=== PATIENT | female | born 1965 | race African-American/Black ===

== ENCOUNTER 2024-06-02 12:49 | Emergency (ER) | payer BC, SELFPAY ==
[2024-06-02] VITALS (7 sets, daily range): BP systolic 109–153; BP diastolic 65–71
[2024-06-02 13:36] LABS: Hematocrit 39.2 % (37.0-47.0); Hemoglobin 12.7 g/dL (12.0-16.0); Mean Corp Hgb Conc. 32.4 g/dL (33.0-37.0); Mean Corpuscular Hgb 27.3 pg (27.0-31.0); Mean Corpuscular Volume 84.1 fL (81.0-99.0); Mean Platelet Volume 9.9 fL (7.4-10.4); Platelet Count 309 10^3/uL (130-400); Red Blood Cell Count 4.66 10^6/uL (4.20-5.40); Red Cell Dist. Width 16.2 % (11.5-14.5); White Blood Cell Count 7.8 10^3/uL (4.8-10.8)
--- NOTE | 2024-06-02 13:51 | ED.GENMED ---
History of Present Illness
<Angelica Bales PA-C - Last Filed: 06/02/24 18:30>
General
Chief Complaint: Chest Pain
Source: patient
Exam Limitations: none
Time Seen by Provider: 06/02/24 13:11
Nursing documentation reviewed up to this point in time: agreed with
History of Present Illness
History of Present Illness:
59-year-old female with past medical history of hyperlipidemia, GERD, diabetes presenting the emergency department today with concerns of chest pain. Patient reports that this started around 6 AM today when she was getting off the bus when she
arrived at work. Patient reports that she had went into work and as the morning went on she noticed her pain was increasing in severity and her pain was constant. She feels the pain in the middle of her chest and describes it as a squeezing
quality. She states that during work today, the pain reach up to a 10 out of 10 in severity, and route today ER, she was given nitro and aspirin, and her pain was related to the 2 out of 10. Currently she has has mild pain and no other symptoms,
no shortness of breath no fevers or chills no cough or upper back pain. The pain does not radiate through her chest. She has no belly pain. She has not had pain like this before. 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 She has no
different family history no personal cardiac history, no dizziness, no lightheadedness, no syncopal episodes. No trauma to the chest wall.
Past History
<Angelica Bales PA-C - Last Filed: 06/02/24 18:30>
Past History
ED Past Medical History: NIDDM and Other (Hyperlipidemia)
ED Past Surgical History: None
Social History
Tobacco: Non-smoker
Alcohol: None
Drug: None
Employment: Employed
Family History
Family History: Diabetes
Review of Systems
<Angelica Bales PA-C - Last Filed: 06/02/24 18:30>
Review of Systems
All Other Systems: ROS reviewed and negative except as documented in HPI and ROS
Phy Exam
<Angelica Bales PA-C - Last Filed: 06/02/24 18:30>
Physical Exam
Physical Exam:
General: Patient is well appearing and in no acute distress; non-toxic
Skin: Warm and dry, no rashes or lesions
Head: Normocephalic, atraumatic
Eyes: Sclera non-icteric. EOMs intact. PERRLA.
Cardiac: Regular rate and rhythm, no murmurs
Peripheral Vascular: No lower extremity swelling or edema
Pulm: Normal respiratory effort, no wheezes, rales, or rhonchi
Abdomen: No abdominal tenderness to palpation
Neuro: CN II-XII intact, no focal neurologic deficits.
Psychiatric: Appropriate mood and affect.
Scores
<Angelica Bales PA-C - Last Filed: 06/02/24 18:30>
Heart Score for Chest Pain Patients
STEMI patient?: No
History: Slightly or Non-Suspicious
ECG: Normal
Age: >45 - <65 years
Risk Factors: 1 or 2 Risk Factors
Troponin: </= Normal Limit
Heart Score for Chest Pain Patients: 2
Heart Score Risk: 2.5% MACE over next 6 weeks
Course
<Angelica Bales PA-C - Last Filed: 06/02/24 18:30>
Orders/Labs/Results
Orders:
Orders
06/02/24 12:55
Electrocardiogram (*1) Urgent
Reason for Study: Chest Pain
EKG- Treatment ONCE
06/02/24 13:00
Complete Blood Count/With Diff Urgent
Comprehensive Metabolic Panel Urgent
Troponin I Urgent
06/02/24 13:57
CR Chest - 2 Views Urgent
Comment:
Reason For Exam: chest pain
06/02/24 15:50
Electrocardiogram (*1) Urgent
Reason for Study: Chest Pain
06/02/24 15:54
Troponin I Urgent
Abnormal Lab Results
06/02/24
13:00
MCHC 32.4 L g/dL
(33.0-37.0)
RDW 16.2 H %
(11.5-14.5)
Absolute Lymphs (auto) 4.1 H 10^3/uL
(1.2-3.4)
Absolute Monos (auto) 0.7 H 10^3/uL
(0.1-0.6)
Neutrophils % 36.8 L %
(42.2-75.2)
Lymphocytes % 52.8 H %
(20.5-51.1)
06/02/24 13:00
06/02/24 13:00
Vital Signs
Initial and Last Documented VS:
Initial Vital Signs
Temp Pulse Resp BP Pulse Ox
98.6 F 64 16 133/65 97
06/02/24 12:56 06/02/24 12:56 06/02/24 12:56 06/02/24 12:56 06/02/24 12:56
Last Documented Vital Signs
Temp Pulse Resp BP Pulse Ox
98.6 F 56 17 153/69 97
06/02/24 12:56 06/02/24 17:15 06/02/24 17:15 06/02/24 17:00 06/02/24 17:15
<Aftab Sullivan MD - Last Filed: 06/02/24 15:09>
Orders/Labs/Results
Orders:
Orders
06/02/24 12:55
Electrocardiogram (*1) Urgent
Reason for Study: Chest Pain
EKG- Treatment ONCE
06/02/24 13:00
Complete Blood Count/With Diff Urgent
Comprehensive Metabolic Panel Urgent
Troponin I Urgent
06/02/24 13:57
CR Chest - 2 Views Urgent
Comment:
Reason For Exam: chest pain
06/02/24 15:50
Electrocardiogram (*1) Urgent
Reason for Study: Chest Pain
06/02/24 15:54
Troponin I Urgent
Abnormal Lab Results
06/02/24
13:00
MCHC 32.4 L g/dL
(33.0-37.0)
RDW 16.2 H %
(11.5-14.5)
Absolute Lymphs (auto) 4.1 H 10^3/uL
(1.2-3.4)
Absolute Monos (auto) 0.7 H 10^3/uL
(0.1-0.6)
Neutrophils % 36.8 L %
(42.2-75.2)
Lymphocytes % 52.8 H %
(20.5-51.1)
06/02/24 13:00
06/02/24 13:00
Vital Signs
Initial and Last Documented VS:
Initial Vital Signs
Temp Pulse Resp BP Pulse Ox
98.6 F 64 16 133/65 97
06/02/24 12:56 06/02/24 12:56 06/02/24 12:56 06/02/24 12:56 06/02/24 12:56
Last Documented Vital Signs
Temp Pulse Resp BP Pulse Ox
98.6 F 56 17 153/69 97
06/02/24 12:56 06/02/24 17:15 06/02/24 17:15 06/02/24 17:00 06/02/24 17:15
<Angelica Bales PA-C - Last Filed: 06/02/24 18:30>
MDM/Problems Addressed
Differential Diagnosis Includes:
ddx include ACS, costochondritis, GERD, pneumothorax,
MDM/Problems Addressed:
59-year-old female presents emergency department today with concerns of chest pain that started before work this morning. It was constant and getting progressively worse, she described as squeezing in the middle of her chest, no shortness of breath
with this. Reached a 10 out of 10 in severity today when she had a sit down and staff called EMS. Her pain is now a 2 out of 10 and largely resolved. She did get aspirin nitro en route. CBC and CMP unremarkable, she had chest x-ray here which
showed no pneumothorax no widened mediastinum. EKG normal sinus rhythm with no ischemic changes, troponin undetectable. She had repeat troponin EKG done which showed no changes, and on reassessment, patient states that she feels better.
Considering patient has risk factors of tension, diabetes and hyperlipidemia, I did stress importance of cardiac follow-up. Patient expressed understanding. Patient stable for discharge
Chronic conditions affecting care:
hyperlipidemia, GERD, diabetes
Acute Exacerbation and/or Progression of Chronic Illness:
n/a
<Angelica Bales PA-C - Last Filed: 06/02/24 18:30>
*Critical Care Note
Total Time (30-74mins, 75-104mins- exclusive of procedures): Not Applicable
ED Attending Note
<Angelica Bales PA-C - Last Filed: 06/02/24 18:30>
-
Portions of this chart may have been created with voice recognition software.� Occasional wrong word or��sound alike� substitutions may have occurred due to the inherent limitations of voice recognition software.
<Aftab Sullivan MD - Last Filed: 06/02/24 15:09>
ED Attending Note
Patient seen and examined by attending physician: Yes
I performed the substantive portion of visit, reviewed & personally made and approve the management plan that is documented in note by myself or FRANKLIN.: Yes
ED Attending Note:
Patient is a 59-year-old woman with history of hyperlipidemia, diabetes presenting to the emergency department with chest pain. Patient states that she woke up on the bus this morning around 6 AM and developed midsternal chest pain. She states
that it was sharp. It was not exertional. She is never had chest pain before. It is nonpleuritic. She denies any numbness tingling in her arms or legs. No leg swelling, malignancy recent mobilization or history of blood clots. She does state
that she had a stress test done many years ago and it was normal. Medics did evaluate patient and she was given aspirin and nitro. That did resolve the pain. At this time patient currently has no complaints. Vitals unremarkable and exam is
reassuring. During my evaluation patient was resting comfortably with a regular rate and rhythm. Chest pain is intermittently reproduced. 2+ radial pulses bilaterally. Abdomen is soft nondistended nontender. Unclear etiology of patient's pain.
Will rule out ACS. Patient will need delta troponin. Less likely to be PE given history and exam. Will check blood work EKG and chest x-ray. Will give patient rapid cardiology follow-up and anticipate discharge if troponins are normal.
Discharge Plan
Departure
Patient Disposition: Home (Routine Discharge)
Date of Disposition: 06/02/24
Time of Disposition: 16:50
Patient with high blood pressure during this ER visit?: Yes
Condition: Good
Discharge Problem:
Chest pain
Instructions: Chest Pain DCA Follow Up, BLOOD PRESSURE
Prescriptions:
No Action
metformin 500 MG tablet
500 mg PO BID
atorvastatin 20 MG tablet
20 mg PO QPM
Referrals:
UNKNOWN - PT DOES,NOT KNOW [Family Provider] -
Activity Restrictions/Additional Instructions:
Your repeat blood work and EKG was normal.
Please return to the emergency department should you experience a return of your symptoms, fainting spells, dizzy spells, shortness of breath, back pain, fevers or chills, or any other signs or symptoms concerning to you.
Please schedule follow-up appointment with your primary care provider in 1 week. You should receive a call from the [facility] to schedule an appointment. She do not receive a call from them in the next few days, please call
the attached number to schedule an appointment.
Interventions
Interventions:
*Risk Screen - Suicide Last Done: 06/02/24 12:58
*General Assessment Last Done: 06/02/24 12:58
*Neglect/Abuse Screening Last Done: 06/02/24 12:58
ED- Fall Risk Assessment Last Done: 06/02/24 17:26
*ED COVID-19 Vaccine History Last Done: 06/02/24 12:58
*Nursing Disposition Last Done: 06/02/24 17:26
ED- Cardiac Assessment Last Done: 06/02/24 12:58
Discharge Date and Time
Discharge Date/Time: 06/02/24 17:28
Print Language: JAPANESE
[2024-06-02 14:02] LABS: ALT (SGPT) 25 U/L (0-35); AST (SGOT) 31 U/L (14-36); Albumin 4.4 g/dl (3.5-5.0); Alkaline Phosphatase 99 U/L (38-126); Blood Urea Nitrogen 12 mg/dl (7-17); Calcium 9.8 mg/dl (8.4-10.2); Carbon Dioxide 22 mmol/L (22-30); Chloride 104 mmol/L (98-107); Glucose 93 mg/dl (70-99); Potassium 4.3 mmol/L (3.5-5.1); Sodium 138 mmol/L (135-145); Total Bilirubin 0.8 mg/dl (0.2-1.3); Total Protein 6.9 g/dl (6.3-8.2); eGFR > 60.00
[2024-06-02 14:12] LABS: Troponin I < 0.012 ng/ml
[2024-06-02 14:16] LABS: % Basophils 0.5 % (0-2); % Eosinophils 0.5 % (0-6); % Immature Granulocytes 0.3 % (0-0.5); % Lymphocytes 52.8 % (20.5-51.1); % Monocytes 9.1 % (1.7-9.3); % Neutrophils 36.8 % (42.2-75.2); Absolute Lymphocytes 4.1 10^3/uL (1.2-3.4); Absolute Monocytes 0.7 10^3/uL (0.1-0.6); Absolute Neutrophils 2.9 10^3/uL (1.4-6.5); Nucleated Red Blood Cells % 0 %
[2024-06-02 16:29] LABS: Troponin I < 0.012 ng/ml
== END 2024-06-02 17:28 | disposition home or self-care (01) ==
LOC: EMR 12:49
PROVIDERS: Physician Assistant; EMERGENCY PHYSICIAN Student in an Organized Health Care Education/Training Program
DX: R07.89 Other chest pain (principal); E78.00 Pure hypercholesterolemia, unspecified; K21.9 Gastro-esophageal reflux disease without esophagitis; E11.9 Type 2 diabetes mellitus without complications
CPT/HCPCS: 99283; 71046; 80053; 84484; 85025; 93005

== ENCOUNTER → 2024-07-16 07:01 | Outpatient (REF) | payer BC, SELFPAY | LOC: HWRCS 07:01 | PROVIDERS: ATTENDING PHYSICIAN Internal Medicine Cardiovascular Disease | DX: R07.89 Other chest pain (principal) | CPT/HCPCS: 93306 ==

== ENCOUNTER → 2024-07-22 07:48 | Outpatient (REF) | payer BC, SELFPAY | LOC: RCS 07:48 | PROVIDERS: ATTENDING PHYSICIAN Internal Medicine Cardiovascular Disease | DX: R07.89 Other chest pain (principal) | CPT/HCPCS: 93017; 93350 ==